=== PATIENT | male | born 1975 | race Two or more races ===

== ENCOUNTER 2018-04-09 10:15 | Emergency (ER) | payer OTHER ==
--- NOTE | 2018-04-09 10:42 | PDOC ---
History of Present Illness - General Chief Complaint: Ear Problem Stated Complaint: EAR PROBLEM Time Seen by Provider: 04/09/18 10:28 History Source: Patient Exam Limitations: No Limitations - History of Present Illness Initial Comments: 04/09/18 10:39 c/o pimple to the right ear canal that is painful and started to drain. no fever no trauma to ear, however pt states he uses qtips often and works in dirty construction sites. Past History - Past Medical History Allergies/Adverse Reactions: Allergies Allergy/AdvReac Type Severity Reaction Status Date / Time No Known Allergies Allergy Verified 01/27/15 14:54 Home Medications: Ambulatory Orders Mupirocin Ointment [Bactroban] 1 applic TP BID #1 tube 04/09/18 COPD: No - Suicide/Smoking/Psychosocial Hx Smoking History: Former smoker Have you smoked in the past 12 months: No If you are a former smoker, when did you quit?: 2001 Information on smoking cessation initiated: No Hx Alcohol Use: No Drug/Substance Use Hx: No Substance Use Type: None *Physical Exam - Vital Signs Last Vital Signs Temp Pulse Resp BP Pulse Ox 98.6 F 68 18 146/80 99 04/09/18 10:19 04/09/18 10:19 04/09/18 10:19 04/09/18 10:19 04/09/18 10:19 - Physical Exam General Appearance: Yes: Nourished, Appropriately Dressed HEENT: positive: EOMI, AIRAM, TMs Normal, Pharynx Normal, Other (right outer ear canal with 0.5cm fluctunat drainaing pimple like abscess, no redness no lymphadenopathy) Medical Decision Making - Medical Decision Making 04/09/18 10:43 outer ear canal abscess less than 1cm no redness wound is draining on own serous fluid will clean with peroxide now prescribe bactroban warm compresses strict follow up with ENT if worse good handwashing hygeine *DC/Admit/Observation/Transfer Diagnosis at time of Disposition: Abscess - Discharge Dispostion Disposition: HOME Condition at time of disposition: Good - Prescriptions Prescriptions: Mupirocin Ointment [Bactroban] 1 applic TP BID #1 tube - Referrals Referrals: Brennon Nelson MD [Staff Physician] - - Patient Instructions Additional Instructions: keep the ear canal clean use warm moist compress to the area of swelling 3-4 times a day for 10 minutes use a qtip or cotton ball soaked in rubbing alcohol or hydrogen peroxide to clean daily and as needed apply a small amount of the antibiotic ointment twice a day follow with if any worsening symptoms - Post Discharge Activity
[2018-04-09 10:48] VITALS: BP 146/80; PULSE 68; TEMP 98.6; BMI 21.8
== END 2018-04-09 11:13 | disposition home or self-care (01) ==
LOC: JER 10:15
DX: L02.818 Cutaneous abscess of other sites (principal); Z87.891 Personal history of nicotine dependence
CPT/HCPCS: 99281-25